=== PATIENT | male | born 1960 | race Caucasian/White ===

== ENCOUNTER 2018-04-10 14:40 | Emergency (ER) | payer OTHER ==
[~2018-04-10] VITALS: Ht 177.8 cm; Wt 134.7 kg
[~2018-04-10 14:40] MED LIST: AMO500 PO; APAP/HYDROCODON1 T11 PO; BAY PO; BIAXIN FILMTAB500 MG PO; HYD25 PO; HYDROCHLOROTHIA50 MG PO; IBUPROFEN600 MG PO; LAC PO; LOSARTAN POTASS50 M1 PO; METOPROLOL TART50 MG PO; MEV20 PO; Macrobid PO; Metoprolol PO; NIFEDIPINE10 M1 PO; NIT0.4 SL; NOR10T PO; OMEPRAZOLE40 M1 PO; PRI20 PO; STOOL SOFTENER100 MG PO; TOPROL XL25 MG PO; ZES20 PO; procardia PO
[2018-04-10 16:01] VITALS: BP 139/70
== END 2018-04-10 16:01 | disposition home or self-care (01) ==
LOC: ED 14:40
DX: R51 Headache (principal); I10 Essential (primary) hypertension; Z86.73 Personal history of transient ischemic attack (TIA), and cerebral infarction without residual deficits

== ENCOUNTER 2018-11-02 06:26 | Day surgery (SDC) | payer OTHER ==
[~2018-11-02] VITALS: Ht 177.8 cm; Wt 136.1 kg
[2018-11-02 06:56] VITALS: BP 121/89
[2018-11-02 10:40] VITALS: BP 116/81
== END 2018-11-02 10:20 | disposition home or self-care (01) ==
LOC: DS 06:26 → GI 07:30 → OR 07:30 → DS 10:20
PROVIDERS: Internal Medicine
PROC: 0DBH8ZZ Excision of Cecum, Via Natural or Artificial Opening Endoscopic (ICD-10-PCS; principal; 2018-11-02 07:30)
PROC: 0DBL8ZZ Excision of Transverse Colon, Via Natural or Artificial Opening Endoscopic (ICD-10-PCS; 2018-11-02 07:30)
PROC: 0DBM8ZZ Excision of Descending Colon, Via Natural or Artificial Opening Endoscopic (ICD-10-PCS; 2018-11-02 07:30)
DX: Z12.11 Encounter for screening for malignant neoplasm of colon (principal); D37.4 Neoplasm of uncertain behavior of colon; D12.0 Benign neoplasm of cecum; D12.3 Benign neoplasm of transverse colon; I11.9 Hypertensive heart disease without heart failure; I51.9 Heart disease, unspecified; E78.5 Hyperlipidemia, unspecified; E66.01 Morbid (severe) obesity due to excess calories; Z68.41 Body mass index [BMI] 40.0-44.9, adult; Z79.82 Long term (current) use of aspirin
CPT/HCPCS: 45378; J1200; J1610; J2250; J2310; J3010; J3490

== ENCOUNTER 2019-02-28 12:14 | Inpatient (IN) | payer OTHER ==
[~2019-02-28] VITALS: Ht 175.3 cm; Wt 134.3 kg
[2019-02-28 12:22] VITALS: Ht 175.3 cm; Wt 134.3 kg
--- NOTE | 2019-02-28 12:28 | NUR ---
PT C/O DIZZINESS SINCE 1114 TODAY PT STS HE WAS WASHING DISHES 30 MIN AFTER HE HAD CORN BEEF AND HASH AT THE TIME, HE STS HE THEN "LAID DOWN FOR A LITTLE AND FELT BETTER BUT STILL DIZZY" PT ALSO STS HE HAS TROUBLE REMEMBERING "THINGS LATELY LIKE I FORGOT WHERE I PUT MY GLASSES, I PUT THEM ON THE FIREPLACE I GUESS BUT I NEVER DO THAT I ALWAYS PUT THEM ON MY NIGHT STAND AND I AM THINKING WHEN DID I DO THAT" PT STS HX LEFT SIDE STROKE HOWEVER DENIES ANY RECENT TRAUMA/INJURY WITH -LOC, PT AAOX4 SPEAKING FULL CLEAR SENTENCES, PT DENIES ANY OTHER S/S AT THIS TIME "JUST MY MIND IS FUZZY RIGHT NOW" RESPS E/U, SKIN PINK DRY AND WARM, AT BEDISDE, PT GOWNED AND PLACED ON FULL CM, NSR, AWAITING MSE
--- NOTE | 2019-02-28 12:48 | NUR ---
EKG IN PROGRESS AND LAB AT BEDSIDE
--- NOTE | 2019-02-28 12:49 | NUR ---
PT INSTRUCTED TO PROVIDE URINE SPECIMEN SOON POSSIBLE
--- NOTE | 2019-02-28 12:51 | NUR ---
PT TAKEN TO CT VIA WHEELCHAIR
[2019-02-28 13:04] LABS: CALCIUM 9.4 mg/dL (8.5-10.1); CARBON DIOXIDE 30.2 mmol/L (21-32); CREATININE SERUM 1.4 mg/dL (0.7-1.3); POTASSIUM SERUM 3.4 mmol/L (3.5-5.1)
[2019-02-28 13:08] LABS: BASOPHIL % 0.5 % (0-2); PLATELET COUNT 218 x10^3mcL (130-400); RED CELL DISTRIBUTION WIDTH 13.1 % (11.5-14.5)
[2019-02-28 13:09] LABS: ALBUMIN 3.9 g/dL (3.4-5.0); BILIRUBIN TOTAL 0.63 mg/dL (0.20-1.00); TOTAL PROTEIN, SERUM 7.7 g/dL (6.4-8.2)
--- NOTE | 2019-02-28 13:16 | NUR ---
PT AMBULATORY WITH STEADY GAIT TO RESTROOM
--- NOTE | 2019-02-28 13:29 | NUR ---
PT IN POSITION OF COMFORT TALKING WITH HIS , RESPS E/U, VSS, IN NAD AT THIS TIME
[2019-02-28] MEDS ORDERED: LIPI10 PO (13:33)
--- NOTE | 2019-02-28 14:34 | NUR ---
PT IN POSITION OF COMFORT, RESPS E/U, VSS PT MEDICATED PER EMAR AND MD ORDERS
--- NOTE | 2019-02-28 14:50 | NUR ---
REPORT GIVEN TO ALLEN BALLARD TELE RM [id number]
[2019-02-28 14:56] LABS: MAGNESIUM 1.9 mg/dL (1.8-2.4); PHOSPHOROUS 2.6 mg/dL (2.5-4.9)
[2019-02-28 15:01] LABS: T3 TOTAL 1.02 ng/mL
[2019-02-28 15:02] LABS: CHOLESTEROL/HDL RATIO 4.5
--- NOTE | 2019-02-28 15:07 | NUR ---
PT STS "I THINK I KNOW WHY I WAS DIZZY AND HAD SLURRED SPEECH, MY DAUGHTER JUST CALLED TELLING ME THAT I ATE ONE OF HER [employer]IBLE COOKIES AT 9 AM TODAY" MD LAZO MADE AWARE, ELIO VILLA FROM TELE MADE AWARE
--- NOTE | 2019-02-28 15:15 | NUR ---
RECEIVED PT VIA FishkiERJESU FROM E/D, ACCOMPANIED BY RN, TRANSPORTER, AND PT'S , SALONI VALENCIA. PT A/A/O X 3 (EPISODES OF CONFUSION TO TIME), CALM, COOPERATIVE. AMBULATORY, W/ MILD WEAKNESS TO RLE, FALL RISK PROTOCOL IN PLACE. ON TELE # 12, NSR, HR 60, DENIES CHEST PAIN OR DISCOMFORT AT THIS TIME. NO ACUTE RESPIRATORY DISTRESS NOTED. IV SITE LH 20G, CDI. ORIENTED PT AND TO ROOM, BED CONTROLS, CALL LIGHT SYSTEM. SIDE RAILS UP X 2, BED IN LOW POSITION. WILL ENDORSE TO ELIO VILLA.
[2019-02-28 15:16] LABS: UA SPECIFIC GRAVITY 1.015 (1.005-1.035); microscopic required? YES; urine erythrocyte TRACE (NEGATIVE)
[2019-02-28 15:25] LABS: AMPHETAMINE QUAL UR NONE DETECTED (See below)
[2019-02-28 15:36] LABS: FREE T4 0.88 ng/dL (0.76-1.46); T4(THYROXINE) 6.5 ug/dL (4.7-13.3)
[2019-02-28 15:42] VITALS: BP 105/62
--- NOTE | 2019-02-28 15:55 | NUR ---
PT SEEN REST ON BED WITH HIS AT BEDSIDE. PT DENIES DIZZINESS AND OTHER DISCOMFORT AT THIS TIME. PT BREATHING ON RA, EVEN, UNLABORED. WILL CONTINUE PT'S CARE.
--- NOTE | 2019-02-28 19:37 | NUR ---
PT AMBULATED TO BATHROOM WITH STEADY GAIT. PT DENIED VERTIGO WITH CLEAR SPEECH AT THIS TIME. PT'S AT BED SIDE. PT IS FOR TELE NEURO CONSULT, PT'S INFORMATION GIVEN TO SOC TELEMED STAFF, REQUIRED DOCUMENTS FAXED. ENDORSED PT CARE TO RECEIVING NURSE.
--- NOTE | 2019-02-28 20:16 | NUR ---
RECIEVED PT FROM DAY NURSE, PT RESTING IN BED COMFORTABLY. AT BEDSIDE. AOX4, CALM AND COOPERATIVE AT THIS TIME. TELE 12, NSR. DENIES CHEST PAIN, N/V, DIZZINESS, AND PALPATATIONS. PALPABLE PUSLES, NO EDEMA NOTED. SCDS IN PLACE. BREATHING EVEN AND UNLABORED, DENIES SOB. BOWEL SOUNDS ACTIVE X4, NO PAIN OR TENDERNESS TO PALPATION. VOIDS INDEPENDENTLY, DENIES DYSURIA. RLE LIANNE WEAKNESS, HX OF LSIDED STROKE. LH IV CDI, AND INFUSING. BED AT LOWEST POSITION, CALL LIGHT WITHIN REACH. WILL CONTINUE TO MONITOR.
[2019-02-28 21:26] VITALS: BP 123/69
--- NOTE | 2019-03-01 00:31 | NUR ---
PT RESTING IN BED COMFORTABLY. NO S/S OF PAIN OR DISCOMFORT AT THIS TIME. BREATHING EVEN AND UNLABORED ON RA. BED AT LOWEST POSITION. CALL LIGHT WITHIN REACH. WILL CONTINUE TO MONITOR.
--- NOTE | 2019-03-01 05:53 | NUR ---
PT RESTING IN BED COMFORTABLY. NO S/S OF PAIN OR DISCOMFORT AT THIS TIME. BREATHING EVEN AND UNLABORED ON RA. DENIES CP, N/V, DIZZINESS, OR PALPATATIONS AT THIS TIME. TELE NERUO CONSULT SCHEDULED BETWEEN 11AM AND 2 PM THIS AFTERNOON. NO OTHER SIGNIFICANT CHANGES THIS SHIFT. BED AT LOWEST POSITION. CALL LIGHT WITHIN REACH. WILL CONTINUE TO MONITOR.
[2019-03-01 05:54] VITALS: BP 98/63
[2019-03-01 06:47] LABS: CARBON DIOXIDE 30.8 mmol/L (21-32); CHLORIDE SERUM 105 mmol/L (98-107); CREATININE SERUM 1.2 mg/dL (0.7-1.3); GFR1 > 60 mL/min; GLUCOSE SERUM 107 mg/dL (74-106); POTASSIUM SERUM 3.6 mmol/L (3.5-5.1); SODIUM SERUM 143 mmol/L (136-145)
[2019-03-01 07:00] LABS: BASOPHIL % 0.4 % (0-2); PLATELET COUNT 201 x10^3mcL (130-400); RED CELL DISTRIBUTION WIDTH 13.5 % (11.5-14.5)
--- NOTE | 2019-03-01 07:30 | NUR ---
PT IS AAOX4 WITH MILD R SIDED WEAKNESS. DENIES H/A OR DIZZINESS. RESP EVEN AND UNLABORED. ON R/A. NO COUGH NOTED. ABDOMEN ROUND, NONTENDER, NONDISTENDED. BOWEL SOUNDS ACTIVE X4. DENIES N/V. SKIN CDI. NO EDEMA NOTED. IVF RUNNING TO . SITE WNL. NO S/S OF INFECTION OR INFILTRATION. PT DENIES PAIN. BED IN LOW POSITION. CALL LIGHT WITHIN REACH.
--- NOTE | 2019-03-01 09:00 | NUR ---
PT PARTICIPATING IN TELE NEURO EVALUATION AT THIS TIME.
--- NOTE | 2019-03-01 09:05 | NUR ---
PT EDUCATED ON ORDERED MEDICATIONS. PT UNAWARE OF THE NAMES, INDICATIONS AND FUNCTION OF THE HOME MEDICATIONS THAT HE TAKES REGULARLY. PT TAUGHT TO MAKE A LIST OF HOME MEDICATIONS AND KEEP SAVED IN CELL PHONE. PT VERBALIZED UNDERSTANDING. DUE MEDICATIONS GIVEN AND TOLERATED WELL. B/P 126/73 (92), HR 62. PT DENIES PAIN AT THIS TIME. PT AWAITING THE CONTINUATION OF TELE NEURO CONSULT. WILL CONTINUE TO MONITOR. CALL LIGHT WITHIN REACH.
[2019-03-01 09:36] VITALS: BP 126/73
--- NOTE | 2019-03-01 10:23 | NUR ---
ECHO PENDING PT. WAITING FOR TELE FARZANEH CONSULT @ 9:30 AM
--- NOTE | 2019-03-01 11:39 | NUR ---
DR. ANNA AND MEDICAL TEAM MET WITH PT AND DISCUSSED POC. PT IS TO DISCHARGE TODAY. PT AGREED WITH POC.
--- NOTE | 2019-03-01 12:27 | NUR ---
DUE MED GIVEN AND TOLERATED WELL. PT INFORMED DISCHARGE ORDER HAS BEEN RECEIVED AND PT WILL BE ABLE TO DISCHARGE WITHIN THE HOUR. RESP EVEN AND UNLABORED. DENIES PAIN. NO C/O DIZZINESS OR H/A.
[2019-03-01 12:58] VITALS: BP 118/49
--- NOTE | 2019-03-01 13:46 | NUR ---
PT DISCHARGED TO HOME IN IN NO DISTRESS. DISCHARGE INSTRUCTIONS REVIEWED WITH PT. ALL FORMS SIGNED AND PLACED IN CHART. TELE 12 REMOVED AND GIVEN TO LIVE[employer]OCK LABORER. IV CATH REMOVED FROM PT INTACT, SITE WNL. NO S/S OF INFECTION OR INFILTRATION NOTED. COVERED WITH GAUZE AND BANDAID. VS: 99.3F, 90, 18, 118/49, 96% ON R/A. PT DENIES PAIN AT TIME OF D/C. ALL PERSONAL BELONINGS TAKEN HOME.
--- NOTE | 2019-03-01 14:40 | NUR ---
ECHO NOT DONE PT DISCHARGED
== END 2019-03-01 13:38 | disposition home or self-care (01) | DRG 896 ==
LOC: ED 12:14 → DU 14:07
PROVIDERS: Emergency Medicine; ADMIT Internal Medicine
DX: F12.10 Cannabis abuse, uncomplicated (principal); N17.0 Acute kidney failure with tubular necrosis; Z68.41 Body mass index [BMI] 40.0-44.9, adult; G90.8 Other disorders of autonomic nervous system; E87.6 Hypokalemia; I10 Essential (primary) hypertension; E78.5 Hyperlipidemia, unspecified; Z79.82 Long term (current) use of aspirin; Z86.73 Personal history of transient ischemic attack (TIA), and cerebral infarction without residual deficits
CPT/HCPCS: 84439; G0378; J7030; J8597; Q0092